=== PATIENT | male | born 1970 | race Caucasian/White ===

== ENCOUNTER 2017-08-10 00:33 | Observation (INO) | payer MEDICAID ==
[~2017-08-10] VITALS: Ht 200.7 cm; Wt 160.0 kg
[2017-08-10] VITALS (8 sets, daily range): BP systolic 121–175; BP diastolic 69–93; PULSE 47–72; RESP 16–20; TEMP 97.3–98; O2SAT 93–98
[~2017-08-10 00:33] MED LIST: FURO20 PO; ULTR50TA PO
[2017-08-10] MEDS ORDERED: ASPI81TA81 PO (01:09)
[2017-08-10] MEDS ORDERED: NITROGLYCERIN 0.4 MG SL 25 TABS/BTL SL ONE ×2 (01:15→03:00)
[2017-08-10] MEDS ORDERED: SODIUM CHLORIDE 0.9% FLUSH 10 ML FLUSH IVF PRN (01:15)
[2017-08-10] MEDS ORDERED: ASPIRIN 81 MG CHEW TAB CHEW ONE (01:15)
--- NOTE | 2017-08-10 01:15 | PD ---
HPI Chief Complaint: Edema Time Seen by Provider: 01:10 Travel History International Travel<30 days: No Contact w/Intl Traveler<30days: No Traveled to known affect area: No History of Present Illness HPI 47-year-old male presents to the emergency department for complaint of bilateral lower extremity swelling over the last several days. Patient has known coronary vessel disease reportedly is supposed to undergo three-vessel coronary bypass. Patient is visiting from [place]. Patient complains of currently 4/10 chest heaviness and tightness as severe as 8/10 in intensity. Patient presently denies any shortness of breath. Patient's noted some fluttering in his chest. Patient denies other concerns or complaints. Patient has history of chronic lower extremity swelling. Patient has been on Lasix in the past. [facility] Past Medical History Narrative Medical CAD hypertension peripheral edema GA tobacco use; no significant Hx Anticoagulant Therapy: Yes (ASA) Cardiovascular Problems: Yes (HTN, GA) Social History Alcohol Use: No Tobacco Use: Yes Substance Use: No Allergies-Medications (Allergen,Severity, Reaction): Coded Allergies: No Known Allergies (Unverified Adverse Reaction, Unknown, 08/10/17) Reported Meds & Prescriptions Reported Meds & Active Scripts Active Reported Aspir-81 (Aspirin) 81 Mg Tabdr 81 Mg PO DAILY Review of Systems Except as stated in HPI: all other systems reviewed are Neg Physical Exam Narrative GENERAL: Well-developed well-nourished male in no acute distress no respiratory distress SKIN: Warm and dry. HEAD: Normocephalic. EYES: No scleral icterus. No injection or drainage. NECK: Supple, trachea midline. No JVD or lymphadenopathy. CARDIOVASCULAR: Regular rate and rhythm without murmurs, gallops, or rubs. RESPIRATORY: Breath sounds equal bilaterally. No accessory muscle use. GASTROINTESTINAL: Abdomen soft, non-tender, nondistended. MUSCULOSKELETAL: No cyanosis, or edema. BACK: Nontender without obvious deformity. No CVA tenderness. Data Data Last Documented VS Vital Signs Date Time Temp Pulse Resp B/P (MAP) Pulse Ox O2 Delivery O2 Flow Rate FiO2 08/10/17 03:05 62 18 169/93 (118) 98 Nasal Cannula 2.00 08/10/17 00:37 98.0 Orders Orders Complete Blood Count With Diff (08/10/17 01:10) Comprehensive Metabolic Panel (08/10/17 01:10) B-Type Natriuretic Peptide (08/10/17 01:10) Act Partial Throm Time (Ptt) (08/10/17 01:10) Prothrombin Time / Inr (Pt) (08/10/17 01:10) Magnesium (Mg) (08/10/17 01:10) Ckmb (Isoenzyme) Profile (08/10/17 01:10) Troponin I (08/10/17 01:10) Urinalysis - C+S If Indicated (08/10/17 01:10) Iv Access Insert/Monitor (08/10/17 01:10) Electrocardiogram (08/10/17 01:10) Ecg Monitoring (08/10/17 01:10) Oximetry (08/10/17 01:10) Oxygen Administration (08/10/17 01:10) Chest, Single Ap (08/10/17 01:10) Sodium Chloride 0.9% Flush (Ns Flush) (08/10/17 01:15) Aspirin Chew (Aspirin Chew) (08/10/17 01:15) Nitroglycerin Sl (Nitrostat Sl) (08/10/17 01:15) Nitroglycerin Sl (Nitrostat Sl) (08/10/17 03:00) Furosemide Inj (Lasix Inj) (08/10/17 03:15) Nitroglycerin 2% Oint (Nitroglycerin 2% (08/10/17 03:15) Admit Order (Ed Use Only) (08/10/17 ) Cap And Stud Machine Operator / Telemetry [id number] (08/10/17 03:16) Diet Heart Healthy (08/10/17 Breakfast) Activity Oob With Assistance (08/10/17 03:16) Notify Dr: Other (08/10/17 03:16) Labs Laboratory Tests Test 08/10/17 01:25 White Blood Count 9.8 TH/MM3 Red Blood Count 5.24 MIL/MM3 Hemoglobin 15.5 GM/DL Hematocrit 45.3 % Mean Corpuscular Volume 86.4 FL Mean Corpuscular Hemoglobin 29.6 PG Mean Corpuscular Hemoglobin Concent 34.2 % Red Cell Distribution Width 13.4 % Platelet Count 304 TH/MM3 Mean Platelet Volume 9.1 FL Neutrophils (%) (Auto) 61.6 % Lymphocytes (%) (Auto) 26.3 % Monocytes (%) (Auto) 9.5 % Eosinophils (%) (Auto) 2.0 % Basophils (%) (Auto) 0.6 % Neutrophils # (Auto) 6.0 TH/MM3 Lymphocytes # (Auto) 2.6 TH/MM3 Monocytes # (Auto) 0.9 TH/MM3 Eosinophils # (Auto) 0.2 TH/MM3 Basophils # (Auto) 0.1 TH/MM3 CBC Comment DIFF FINAL Differential Comment Prothrombin Time 10.7 SEC Prothromb Time International Ratio 1.1 RATIO Activated Partial Thromboplast Time 29.1 SEC Blood Urea Nitrogen 15 MG/DL Creatinine 0.89 MG/DL Random Glucose 96 MG/DL Total Protein 8.3 GM/DL Albumin 3.9 GM/DL Calcium Level 9.1 MG/DL Magnesium Level 1.9 MG/DL Alkaline Phosphatase 126 U/L Aspartate Amino Transf (AST/SGOT) 18 U/L Alanine Aminotransferase (ALT/SGPT) 26 U/L Total Bilirubin 0.5 MG/DL Sodium Level 139 MEQ/L Potassium Level 3.7 MEQ/L Chloride Level 104 MEQ/L Carbon Dioxide Level 25.8 MEQ/L Anion Gap 9 MEQ/L Estimat Glomerular Filtration Rate 91 ML/MIN Total Creatine Kinase 69 U/L Troponin I LESS THAN 0.02 NG/ML B-Type Natriuretic Peptide 27 PG/ML MDM Medical Decision Making Medical Screen Exam Complete: Yes Emergency Medical Condition: Yes Medical Record Reviewed: Yes Interpretation(s) EKG: Atrial flutter 5:1 QS septally no acute ST elevation ventricular rate 72 CBC & BMP Diagram 08/10/17 01:25 Total Protein 8.3 H, Albumin 3.9, Calcium Level 9.1, Magnesium Level 1.9, Alkaline Phosphatase 126 H, Aspartate Amino Transf (AST/SGOT) 18, Alanine Aminotransferase (ALT/SGPT) 26, Total Bilirubin 0.5 Vital Signs Date Time Temp Pulse Resp B/P (MAP) Pulse Ox O2 Delivery O2 Flow Rate FiO2 08/10/17 03:05 62 18 169/93 (118) 98 Nasal Cannula 2.00 08/10/17 01:36 94 08/10/17 01:34 72 18 159/88 (111) 94 Room Air 08/10/17 00:37 98.0 72 20 175/84 (114) 97 Room Air Differential Diagnosis Chest pain, ACS, GA, new-onset atrial flutter, CHF, PE, pleural effusion, viral syndrome Narrative Course Patient placed on track maintainer IV access obtained specimens collected and sent for resulting; patient administered aspirin 162 mg one similar nitroglycerin for complaint of chest heaviness 4/10 intensity. Patient given additional sublingual nitroglycerin 0.4 mg times one Patient pain-free chest x-ray concerning for some vascular congestion Lasix 40 mg IV administered Lab values otherwise grossly within normal limits troponin I is not elevated at less than 0.02, CK is not elevated 69 and BNP is not elevated at 27 Patient reports clinically improved aware of plan for admission Patient with known history of coronary vessel disease reportedly states he is to have three-vessel CABG will admit for serial enzymes and will monitor her response to gentle diuresis patient has chronic history of peripheral edema. Chest x-ray consistent with some vascular congestion and further assessment of new onset versus age-indeterminate atrial flutter. Patient's case discussed with on-call [facility] Physician Communication Physician Communication discussed with Dr Qiu Diagnosis Primary Impression: Chest pain Qualified Codes: R07.2 - Precordial pain Additional Impression: New onset atrial flutter Admitting Information Admitting Physician Requests: Observation Lucero Dukes MD Aug 10, 2017 01:15
--- NOTE | 2017-08-10 01:40 | RADRPT ---
EXAM DATE/TIME: 08/10/2017 01:16 [place] COMPARISON: No previous studies available for comparison. INDICATIONS : Short of breath. MEDICAL HISTORY : Congestive heart failure. Cardiovascular disease. SURGICAL HISTORY : None. ENCOUNTER: Initial ACUITY: 4 - 6 days PAIN SCORE: 0/10 LOCATION: Bilateral chest FINDINGS: Single AP view of the chest. Mild cardiac silhouette enlargement. Mild symmetric bilateral lower lung zone opacity indicating atelectasis versus mild pulmonary edema. No evidence of pleural effusion or pneumothorax. CONCLUSION: Bilateral lower lung zone opacity indicating atelectasis versus mild pulmonary edema. Cornelio Dubose MD on August 10, 2017 at 1:34 Board Certified Radiologist. This report was verified electronically.
[2017-08-10 01:58] LABS: BASOPHIL # 0.1 TH/MM3 (0-0.2); BASOPHIL % 0.6 % (0.0-2.0); EOSINOPHIL # 0.2 TH/MM3 (0-0.4); HEMATOCRIT 45.3 % (39.0-51.0); HEMOGLOBIN 15.5 GM/DL (13.0-17.0); LYMPH % 26.3 % (9.0-44.0); LYMPHOCYTE # 2.6 TH/MM3 (1.0-4.8); MEAN CELL VOLUME 86.4 FL (80.0-100.0); MEAN CORPUSCULAR HEMOGLOBIN 29.6 PG (27.0-34.0); MEAN CORPUSCULAR HGB CONC 34.2 % (32.0-36.0); MEAN PLATELET VOLUME 9.1 FL (7.0-11.0); MONO % 9.5 % (0.0-8.0); MONOCYTE # 0.9 TH/MM3 (0-0.9); NEUT % 61.6 % (16.0-70.0); PLATELET COUNT 304 TH/MM3 (150-450); RED BLOOD COUNT 5.24 MIL/MM3 (4.50-5.90); RED CELL DISTRIBUTION WIDTH 13.4 % (11.6-17.2); WHITE BLOOD COUNT 9.8 TH/MM3 (4.0-11.0)
[2017-08-10 02:11] LABS: INTERNATIONAL NORMALIZED RATIO 1.1 RATIO; PROTHROMBIN TIME - PATIENT 10.7 SEC (9.8-11.6)
[2017-08-10 02:18] LABS: ALBUMIN 3.9 GM/DL (3.4-5.0); ALKALINE PHOSPHATASE 126 U/L (45-117); ALT (GPT) 26 U/L (12-78); AST (GOT) 18 U/L (15-37); BICARBONATE 25.8 MEQ/L (21.0-32.0); BLOOD UREA NITROGEN 15 MG/DL (7-18); CALCIUM 9.1 MG/DL (8.5-10.1); CHLORIDE 104 MEQ/L (98-107); CREATININE 0.89 MG/DL (0.60-1.30); GLOMERULAR FILTRATION RATE 91 ML/MIN (>89); GLUCOSE,RANDOM 96 MG/DL (74-106); MAGNESIUM 1.9 MG/DL (1.5-2.5); SODIUM (NA) 139 MEQ/L (136-145); TOTAL BILIRUBIN ADULT 0.5 MG/DL (0.2-1.0); TOTAL PROTEIN 8.3 GM/DL (6.4-8.2); TROPONIN I LESS THAN 0.02 NG/ML (0.02-0.05)
[2017-08-10] MEDS ORDERED: FUROSEMIDE 40 MG/4 ML VIAL IV PUSH ONE (03:15)
[2017-08-10] MEDS ORDERED: NITROGLYCERIN 2% OINT 1 GM PACKET TOPICAL ONE (03:15)
[2017-08-10] MEDS ORDERED: LACTULOSE SYRUP 20 GM/30 ML CUP PO PRN (03:30)
[2017-08-10] MEDS ORDERED: SENNOSIDES 8.6 MG TAB PO PRN (03:30)
[2017-08-10] MEDS ORDERED: BISACODYL 10 MG SUPP RECTAL PRN (03:30)
[2017-08-10] MEDS ORDERED: ONDANSETRON HCL 4 MG/2 ML VIAL IVP PRN (03:30)
[2017-08-10] MEDS ORDERED: SODIUM CHLORIDE 0.9% FLUSH 10 ML FLUSH IV FLUSH PRN (03:30)
[2017-08-10] MEDS ORDERED: MAGNESIUM HYDROXIDE SUSP 30 ML CUP PO PRN (03:30)
[2017-08-10] MEDS ORDERED: ACETAMINOPHEN/HYDROcodone 325 MG/5 MG TAB PO PRN (03:30)
[2017-08-10] MEDS ORDERED: ACETAMINOPHEN 325 MG TAB PO PRN (03:30)
[2017-08-10] MEDS ORDERED: MORPHINE SULFATE 2 MG/ML INJ IV PUSH PRN (03:30)
--- NOTE | 2017-08-10 04:05 | HHI.HP ---
[facility] No Primary Care Physician Admission Diagnosis chest pain; atrial flutter; h/o lymphedema Diagnoses: (1) Chest pain Diagnosis: Principal (2) CHF (congestive heart failure) Diagnosis: Principal (3) New onset atrial flutter Diagnosis: Principal (4) HTN (hypertension) Diagnosis: Principal (5) Tobacco abuse Diagnosis: Principal Travel History International Travel<30 Days: No Contact w/Intl Traveler <30 Da: No Traveled to Known Affected Are: No History of Present Illness This is a 47-year-old male with a PMH of HTN, CAD, CHF (Unknown EF) and Tobacco Abuse who presented to the ER with complaints of bilateral lower extremity edema and chest pain x2-3 days. Reports chest pain is pressure-like, intermittent, worse w/ exertion, 8/10, non-radiating. States lower extremity edema has gotten worse, previously on Lasix in the past but does not take it regularly. Reports he's visiting from [place] and is supposed to undergo CABG, but has not decided on surgery as of yet. On arrival, BP 135/84, HR 72, O2 sat 97% on RA, Afebrile. CBC unremarkable. Chemistry unremarkable. Troponin negative. BNP 27. INR 1.1. CXR with bilateral lower lung zone opacities atelectasis versus pulmonary edema. S/p Lasix 40mg IV and NTG in ER w / some improvement, currently chest pain free. While in ER, pt noted to have episode of A-flutter, rate controlled. Review of Systems Except as stated in HPI: all other systems reviewed are Neg ROS: 14 point review of systems otherwise negative. Past Family Social History Past Medical History PMH: HTN, CAD, CHF (Unknown EF) and Tobacco Abuse Past Surgical History PAST SURGICAL HISTORY: Left Knee Surgery, Left Ankle Surgery Allergies: Coded Allergies: No Known Allergies (Unverified Allergy, Unknown, 08/10/17) Family History PAST FAMILY HISTORY: Reviewed. No h/o DM or CAD Social History PAST SOCIAL HISTORY: Negative for alcohol or drugs. Positive for Tobacco. Physical Exam Vital Signs Vital Signs Date Time Temp Pulse Resp B/P (MAP) Pulse Ox O2 Delivery O2 Flow Rate FiO2 08/10/17 03:05 62 18 169/93 (118) 98 Nasal Cannula 2.00 08/10/17 01:36 94 08/10/17 01:34 72 18 159/88 (111) 94 Room Air 08/10/17 00:37 98.0 72 20 175/84 (114) 97 Room Air Physical Exam PE: GENERAL: Middle-aged white male in no acute distress. HEENT: PERRLA, EOMI. No scleral icterus or conjunctival pallor. No lid lag or facial droop. CARDIOVASCULAR: Regular rate and rhythm. No obvious murmurs to auscultation. No chest tenderness to palpation. RESPIRATORY: No obvious rhonchi or wheezing. Clear to auscultation. Breath sounds equal bilaterally. GASTROINTESTINAL: Abdomen soft, non-tender, nondistended. BS normal. MUSCULOSKELETAL: Extremities without clubbing, cyanosis, 1+ edema. No obvious deformities. NEUROLOGICAL: Awake, alert and oriented x4. No focal neurologic deficits. Moving both upper and lower extremities spontaneously. Laboratory Laboratory Tests Test 08/10/17 01:25 White Blood Count 9.8 Red Blood Count 5.24 Hemoglobin 15.5 Hematocrit 45.3 Mean Corpuscular Volume 86.4 Mean Corpuscular Hemoglobin 29.6 Mean Corpuscular Hemoglobin Concent 34.2 Red Cell Distribution Width 13.4 Platelet Count 304 Mean Platelet Volume 9.1 Neutrophils (%) (Auto) 61.6 Lymphocytes (%) (Auto) 26.3 Monocytes (%) (Auto) 9.5 Eosinophils (%) (Auto) 2.0 Basophils (%) (Auto) 0.6 Neutrophils # (Auto) 6.0 Lymphocytes # (Auto) 2.6 Monocytes # (Auto) 0.9 Eosinophils # (Auto) 0.2 Basophils # (Auto) 0.1 CBC Comment DIFF FINAL Differential Comment Prothrombin Time 10.7 Prothromb Time International Ratio 1.1 Activated Partial Thromboplast Time 29.1 Blood Urea Nitrogen 15 Creatinine 0.89 Random Glucose 96 Total Protein 8.3 Albumin 3.9 Calcium Level 9.1 Magnesium Level 1.9 Alkaline Phosphatase 126 Aspartate Amino Transf (AST/SGOT) 18 Alanine Aminotransferase (ALT/SGPT) 26 Total Bilirubin 0.5 Sodium Level 139 Potassium Level 3.7 Chloride Level 104 Carbon Dioxide Level 25.8 Anion Gap 9 Estimat Glomerular Filtration Rate 91 Total Creatine Kinase 69 Troponin I LESS THAN 0.02 B-Type Natriuretic Peptide 27 Result Diagram: 08/10/1712408/10/17124 Caprini VTE Risk Assessment Caprini VTE Risk Assessment: No/Low Risk (score <= 1) Caprini Risk Assessment Model Point Value = 1 Point Value = 2 Point Value = 3 Point Value = 5 Age 41-60 Minor surgery BMI > 25 kg/m2 Swollen legs Varicose veins or History of unexplained or recurrent spontaneous Oral contraceptives or hormone replacement Sepsis (< 1 month) Serious lung disease, including pneumonia (< 1 month) Abnormal pulmonary function Acute myocardial infarction Congestive heart failure (< 1 month) History of inflammatory bowel disease Medical patient at bed rest Age 61-74 Arthroscopic surgery Major open surgery (> 45 min) Laparoscopic surgery (> 45 min) Malignancy Confined to bed (> 72 hours) Immobilizing plaster cast Central venous access Age >= 75 History of VTE Family history of VTE Factor V Leiden Prothrombin [id number] Lupus anticoagulant Anticardiolipin antibodies Elevated serum homocysteine Heparin-induced thrombocytopenia Other congenital or acquired thrombophilia Stroke (< 1 month) Elective arthroplasty Hip, pelvis, or leg fracture Acute spinal cord injury (< 1 month) Prophylaxis Regimen Total Risk Factor Score Risk Level Prophylaxis Regimen 0-1 Low Early ambulation 2 Moderate Order ONE of the following: *Sequential Compression Device (SCD) *Heparin 5000 units SQ BID 3-4 Higher Order ONE of the following medications: *Heparin 5000 units SQ TID *Enoxaparin/Lovenox 40 mg SQ daily (WT < 150 kg, CrCl > 30 mL/min) *Enoxaparin/Lovenox 30 mg SQ daily (WT < 150 kg, CrCl > 10-29 mL/min) *Enoxaparin/Lovenox 30 mg SQ BID (WT < 150 kg, CrCl > 30 mL/min) AND/OR *Sequential Compression Device (SCD) 5 or more Highest Order ONE of the following medications: *Heparin 5000 units SQ TID (Preferred with Epidurals) *Enoxaparin/Lovenox 40 mg SQ daily (WT < 150 kg, CrCl > 30 mL/min) *Enoxaparin/Lovenox 30 mg SQ daily (WT < 150 kg, CrCl > 10-29 mL/min) *Enoxaparin/Lovenox 30 mg SQ BID (WT < 150 kg, CrCl > 30 mL/min) AND *Sequential Compression Device (SCD) Assessment and Plan Problem List: (1) Chest pain ICD Code: R07.9 - Chest pain, unspecified Status: Acute (2) New onset atrial flutter ICD Code: I48.92 - Unspecified atrial flutter Status: Acute (3) CHF (congestive heart failure) ICD Code: I50.9 - Heart failure, unspecified (4) HTN (hypertension) ICD Code: I10 - Essential (primary) hypertension (5) Tobacco abuse ICD Code: Z72.0 - Tobacco use Assessment and Plan A/P: 1. Chest Pain: r/o ACS, h/o extensive cardiac disease, recommendation for CABG per patient. Initial trop negative. Admit for Observation, Telemetry, check serial cardiac enzymes. Statin, ASA, Metoprolol. Consult Cardiology as needed for further recommendations/evaluation. NTG/Morphine as needed. 2. CHF: Unknown EF. Worsening lower extremity edema. BNP normal. CXR w/ possible edema bilaterally, s/p Lasix IV in ER. Continue w/ diuresis, monitor I /O, check Echo to eval for cardiomyopathy/heart failure. 3. A-flutter: New Onset. Rate-controlled. Telemetry. Check Echo as above. Metoprolol. Consult Cardiology for further recommendations. 4. HTN: Uncontrolled. BP 170's. Start Metoprolol, monitor BP. 5. Tobacco Abuse: Pt counselled. Ativan prn. No NicoDerm to avoid vasoconstriction. 6. DVT Prophylaxis: Heparin sq 7. Social work for d/c planning as needed. 8. Case discussed at length w/ ER physician, labs/imaging/records reviewed by me. Problem Qualifiers (1) Chest pain: Qualified Codes: R07.2 - Precordial pain Nadeen Qiu MD Aug 10, 2017 04:05
--- NOTE | 2017-08-10 08:08 | HHI.PR ---
Subjective Remarks Follow up on patient with CAD, chest pain. Patient seen and examined. Patient states he feels tired. Denies any improvement since admission. He denies any complaints of chest pain. Denies any cough or shortness of breath. 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 He has come down to [facility] to "camp out for awhile". Patient is a poor historian. Gives short one or two word answers. Keeps his eyes closed thru most of the exam. Denies any N/V or abdominal pain. Urinating well. Objective Vitals Vital Signs Date Time Temp Pulse Resp B/P (MAP) Pulse Ox O2 Delivery O2 Flow Rate FiO2 08/10/17 05:05 97.5 52 16 128/72 (90) 98 08/10/17 04:10 70 18 129/75 (93) 96 Nasal Cannula 2.00 08/10/17 03:05 62 18 169/93 (118) 98 Nasal Cannula 2.00 08/10/17 01:36 94 08/10/17 01:34 72 18 159/88 (111) 94 Room Air 08/10/17 00:37 98.0 72 20 175/84 (114) 97 Room Air I/O 08/09/17 08/09/17 08/09/17 08/10/17 08/10/17 08/10/17 07:00 15:00 23:00 07:00 15:00 23:00 Intake Total 100 ml 100 ml Balance 100 ml 100 ml Intake Oral 100 ml 100 ml Result Diagram: 08/10/17 0125 08/10/17 0125 Imaging Last Impressions Chest X-Ray 08/10/17 0110 Signed Impressions: Service Date/Time: Thursday, August 10, 2017 01:16 - CONCLUSION: Bilateral lower lung zone opacity indicating atelectasis versus mild pulmonary edema. Cornelio Dubose MD Objective Remarks GENERAL: Well-nourished, well-developed obese male patient in NAD. Lethargic. SKIN: Warm and dry. No rash. HEAD: Normocephalic. Atraumatic. EYES: EOMI. No scleral icterus. No injection or drainage. ENT: No nasal bleeding or discharge. Mucous membranes pink and moist. NECK: Supple. Trachea midline. CARDIOVASCULAR: Regular rate and rhythm. S1, S2 noted. No murmur appreciated. RESPIRATORY: No accessory muscle use. Clear to auscultation except for few crackles in right lung base. GASTROINTESTINAL: Abdomen soft, non-tender, nondistended. Normoactive bowel sounds x4. MUSCULOSKELETAL: No obvious deformities. Extremities without clubbing or cyanosis. Trace edema bilaterally. NEUROLOGICAL: Awake. Lethargic. Able to move all extremities spontaneously. Normal speech but giving minimal responses. PSYCHIATRIC: Difficult to ascertain mood and insight at this time. Medications and IVs Current Medications Medications (Trade) Dose Ordered Sig/Rhonda Route Start Time Stop Time Status Last Admin (NS Flush) 2 ml UNSCH PRN IV FLUSH 08/10/17 03:30 (NS Flush) 2 ml BID IV FLUSH 08/10/17 09:00 (Zofran Inj) 4 mg Q6H PRN IVP 08/10/17 03:30 (Heparin Inj) 5,000 units Q12H SQ 08/10/17 09:00 (Tylenol) 650 mg Q6H PRN PO 08/10/17 03:30 ([place] 5-325 Mg) 1 tab Q4H PRN PO 08/10/17 03:30 (Morphine Inj) 2 mg Q3H PRN IV PUSH 08/10/17 03:30 (Babita-Colace) 1 tab BID PO 08/10/17 09:00 (Milk Of Magnesia Liq) 30 ml Q12H PRN PO 08/10/17 03:30 (Senokot) 17.2 mg Q12H PRN PO 08/10/17 03:30 (Dulcolax Supp) 10 mg DAILY PRN RECTAL 08/10/17 03:30 (Lactulose Liq) 30 ml DAILY PRN PO 08/10/17 03:30 (Pravachol) 40 mg DAILY PO 08/10/17 09:00 (Lasix Inj) 40 mg BID@18 IV PUSH 08/10/17 09:00 (Lopressor) 25 mg Q12HR PO 08/10/17 09:00 (Ecotrin Ec) 81 mg DAILY PO 08/10/17 09:00 (Pneumovax-23 Inj) 25 mcg ONCE ONCE IM 08/11/17 09:00 08/11/17 09:01 (Flu (Quadrivalent) Vaccine Inj) 0.5 ml ONCE ONCE IM 08/11/17 09:00 08/11/17 09:01 A/P Problem List: (1) Chest pain ICD Code: R07.9 - Chest pain, unspecified Status: Acute (2) New onset atrial flutter ICD Code: I48.92 - Unspecified atrial flutter Status: Acute (3) CHF (congestive heart failure) ICD Code: I50.9 - Heart failure, unspecified (4) HTN (hypertension) ICD Code: I10 - Essential (primary) hypertension (5) Tobacco abuse ICD Code: Z72.0 - Tobacco use Assessment and Plan 1. Chest Pain, r/o ACS h/o extensive cardiac disease, recommendation for CABG per patient. Patient denies any chest pain this morning - Initial trop negative. Trend cardiac enzymes and EKGs. - Continuous cardiac monitoring - Statin, ASA, Metoprolol. - Cardiology consulted, appreciate recommendations - NTG/Morphine as needed 2. CHF, Unknown EF. Patient reports worsening lower extremity edema - BNP normal, suspect falsely low secondary to patient's morbid obesity - CXR w/ possible edema bilaterally - Continue w/ IV diuresis. Strict I/O. Monitor electrolytes. 2gm salt restricted diet - Check Echo to eval for cardiomyopathy/heart failure. - Monitor respiratory status, patient currently satting 98% on room air 3. A-flutter, New Onset. Rate-controlled - cardiac telemetry. Check Echo as above. Metoprolol. Consult Cardiology for further recommendations. 4. HTN, Uncontrolled. BP 170's at presentation in the ED. - Started on Metoprolol 25 mg twice a day. BP much improved. Continue. - Continue to monitor BP and adjust treatment accordingly 5. Tobacco Abuse - Cessation counseling - No NicoDerm to avoid vasoconstriction. 6. Suspect underlying AMPARO - Recommend patient follow up as outpatient for sleep study 7. DVT Prophylaxis: Heparin sq Discharge Planning Discharge planning pending clinical course improvement and cardiology clearance Attending Statement patient was seen and examined today. presented with chest pain and worsening pedal edema. troponin so far negative. echo pending. awaiting cardiology evaluation. rest of assessment and plan as noted above. Problem Qualifiers (1) Chest pain: Qualified Codes: R07.2 - Precordial pain Andreia Bolivar Aug 10, 2017 08:08 Danie Harris MD Aug 10, 2017 12:19
[2017-08-10] MEDS ORDERED: PRAVASTATIN SOD 40 MG TAB PO SCH (09:00)
[2017-08-10] MEDS ORDERED: HEPARIN SODIUM - SQ 10,000 UNITS/ML VIAL SQ SCH (09:00)
[2017-08-10] MEDS ORDERED: DOCUSATE SODIUM 50 MG/SENNA 8.6 MG TAB PO SCH (09:00)
[2017-08-10] MEDS ORDERED: METOPROLOL TARTRATE 25 MG TAB PO SCH (09:00)
[2017-08-10] MEDS ORDERED: SODIUM CHLORIDE 0.9% FLUSH 10 ML FLUSH IV FLUSH SCH (09:00)
[2017-08-10] MEDS ORDERED: ASPIRIN EC 81 MG TABEC PO SCH (09:00)
[2017-08-10] MEDS: FUROSEMIDE 40 MG/4 ML VIAL IV PUSH SCH ×2 (11:20→18:37)
--- NOTE | 2017-08-10 12:45 | EKG ---
Date Performed: 08/10/2017 Time Performed: 01:06:05 PTAGE: 47 years EKG: Atrial flutter with controlled ventricular response Low QRS voltage in precordial leads PREVIOUS TRACING : 08/20/2013 17.58 Since previous tracing, there is a rhythm change from Sinus rhythm to atrial flutter. Clinical correlation is recommended. DOCTOR: Sixto Baumann Interpretating Date/Time 08/10/2017 12:43:29
--- NOTE | 2017-08-10 12:52 | MB ---
cc: GUILLE OLIVER M.D. DATE OF CONSULTATION: 08/10/2017 REASON FOR CONSULTATION: HISTORY OF PRESENT ILLNESS: Kurt is a very pleasant 47-year-old gentleman visiting from [place]. Over a year ago he had a heart catheterization and was told he needed coronary artery bypass graft procedure. The patient has not done that yet. He presents with a chief complaint of worsening mild to moderate dyspnea on exertion and chest discomfort, lower extremity edema, weakness and fatigue. Otherwise he denies any fevers, chills, cough, GI/ bleeding, orthopnea, syncope or dizziness. He also complains of palpitations. PAST MEDICAL HISTORY: As per history of present illness. History of hypertension. Myocardial infarction. SOCIAL HISTORY He does smoke. Denies alcohol use. ALLERGIES: NONE. MEDICATIONS PRIOR TO ADMISSION: Aspirin 81 milligrams daily. MEDICATIONS IN THE HOSPITAL: 1. Heparin 5000 subcu q12 hours. 2. Pravastatin 40 daily. 3. Furosemide 40 IV b.i.d. 4. Toprol 25 q12 hours p.o. 5. Aspirin 81 milligrams daily. PHYSICAL EXAMINATION VITAL SIGNS: Blood pressure 121/69, pulse ranging between 60 and 70, temperature 97.3, respiratory rate 18, sats are 93% on room air. General: He is alert and oriented x3 in no acute distress. NECK: Supple. No JVD. CARDIOVASCULAR: S1-S2. No murmurs, rubs, or gallops. LUNGS: Clear. ABDOMEN: Soft, nontender, positive bowel sounds. EXTREMITIES: No extremity edema. Chest x-ray shows bilateral lower lung zone opacity indicating atelectasis versus mild pulmonary edema. LABORATORY DATA White count 9.81, hemoglobin 15.5, hematocrit 45.3, platelet count 304. Sodium 139, potassium 3.7, chloride 104, bicarb 25.8, BUN 15, creatinine 0.89. AST 18, ALT 26. INR is 1.1. EKG shows A-flutter at a rate of 72 beats per minute. DIAGNOSIS 1. A-flutter. 2. CHF. 3. Coronary artery disease. 4. Unstable angina. 5. Decompensated congestive heart failure. 6. Tobacco abuse. DISCUSSION: At this point in time, the patient had high risk presentation with unstable angina. [place] Cardiovascular Society Class IV angina with resting chest pain, worsening dyspnea on exertion, CHF. Therefore, I have recommended left heart catheterization and right heart catheterization which is medically necessary. The patient currently is refusing. I explained to him he is high-risk for sudden and significant morbidity/mortality. He understands. Strongly recommend smoking cessation. I will put him on the schedule for tomorrow. He has a BLANCA vas score of 2, therefore, Coumadin and/or novel oral anticoagulant therapy with Xarelto, Pradaxa, Eliquis is indicated and I do recommend that to him. Will hold this over the next 24 hours while the patient is deciding whether or not he will have a heart catheterization. Otherwise, continue aspirin, subcu heparin, beta-homar, diuretic. Follow up daily BNP, BMP. MD PRETTY Reynoso/JEANNETTE /11:43 AM /12:14 PM
[2017-08-10 16:35] LABS: CHOLESTEROL 168 MG/DL (120-200); TRIGLYCERIDES 90 MG/DL (42-150)
[2017-08-10 16:43] LABS: CHOLESTEROL/ HDL RATIO 5.23 RATIO; HDL CHOLESTEROL 32.1 MG/DL (40.0-60.0); LDL CHOLESTEROL 118 MG/DL (0-99); TROPONIN I LESS THAN 0.02 NG/ML (0.02-0.05)
[2017-08-11] MEDS ORDERED: INFLUENZA VIRUS VACCINE (QUADRIVALENT) 0.5 ML SYR IM ONE (09:00)
[2017-08-11] MEDS ORDERED: PNEUMOCOCCAL POLYVALENT INJ 25 MCG/0.5 ML SYR IM ONE (09:00)
== END 2017-08-10 21:53 | disposition left against medical advice (07) ==
LOC: NEPC 00:33 → NEDA 03:19 → NEPFCDU 04:15
PROVIDERS: ADMIT Internal Medicine; ATTEND Internal Medicine
DX: I25.110 Atherosclerotic heart disease of native coronary artery with unstable angina pectoris (principal); I11.0 Hypertensive heart disease with heart failure; I50.9 Heart failure, unspecified; I48.92 Unspecified atrial flutter; I25.2 Old myocardial infarction; F17.200 Nicotine dependence, unspecified, uncomplicated; E66.01 Morbid (severe) obesity due to excess calories; Z68.39 Body mass index [BMI] 39.0-39.9, adult; Z79.82 Long term (current) use of aspirin
CPT/HCPCS: 71045; 80053; 80061; 82550; 83735; 83880; 84443; 84484; 85025; 85610; 85730; 93005; 96372; 96374; 96376; 99285; G0378; J1644; J1940

== ENCOUNTER 2017-09-20 20:26 | Emergency (ER) | payer MEDICAID ==
[~2017-09-20] VITALS: Ht 200.7 cm; Wt 165.0 kg
[~2017-09-20 20:26] MED LIST changes: +ASPI81TA81 PO; -FURO20 PO; -ULTR50TA PO
[2017-09-20 20:29] VITALS: BP 140/76; PULSE 84; RESP 22; TEMP 98.5; O2SAT 100
[2017-09-20] MEDS ORDERED: FURO1TAB60 PO (20:33)
[2017-09-20 20:45] VITALS: O2SAT 98
[2017-09-20] MEDS ORDERED: SODIUM CHLORIDE 0.9% FLUSH 10 ML FLUSH IVF PRN (20:45)
--- NOTE | 2017-09-20 20:49 | PD ---
HPI . Lower extremity edema Chief Complaint: Edema Time Seen by Provider: 20:36 Travel History International Travel<30 days: No Contact w/Intl Traveler<30days: No Traveled to known affect area: No History of Present Illness HPI This patient presents with the chief complaint of lower extremity edema. He states that it started this week. It is getting progressively worse. Left is worse than right. He reports pain in the left lower extremity which she rates 9 -3/4 out of 10. He states it feels like it's about to burst. He is not having any chest pain or shortness of breath. He reports a history of coronary artery disease and hypertension. The patient reports that he was recently admitted to [facility] for the same thing. [facility] Past Medical History Hx Anticoagulant Therapy: Yes (ASA) Asthma: No Blood Disorders: No Anxiety: No Depression: No Heart Rhythm Problems: Yes Cancer: No Cardiovascular Problems: No High Cholesterol: No Chemotherapy: No Chest Pain: Yes Congestive Heart Failure: No COPD: No Coronary Artery Disease: Yes Diabetes: No Diminished Hearing: No Endocrine: No Gastrointestinal Disorders: No Genitourinary: No Hypertension: No Immune Disorder: No Implanted Vascular Access Dvce: No Musculoskeletal: No Neurologic: No Psychiatric: No Reproductive: No Respiratory: No Radiation Therapy: No Sleep Apnea: No Thyroid Disease: No Past Surgical History Other Surgery: Yes (b/l thorocetisis) Social History Alcohol Use: Yes (jaimie) Tobacco Use: Yes Substance Use: No Allergies-Medications (Allergen,Severity, Reaction): Coded Allergies: No Known Allergies (Unverified Allergy, Unknown, 09/20/17) Reported Meds & Prescriptions Reported Meds & Active Scripts Active Reported Lasix (Furosemide) 40 Mg Tab 40 Mg PO BID Aspir-81 (Aspirin) 81 Mg Tabdr 81 Mg PO DAILY Review of Systems Except as stated in HPI: all other systems reviewed are Neg Cardiovascular: No: Chest Pain or Discomfort Respiratory: No: Shortness of Breath Musculoskeletal: Positive: Edema, Pain Physical Exam Narrative GENERAL: Markedly obese. He weighs 165 kg and has a BMI of 41. He does not appear to be in any distress. SKIN: warm/dry. He has bruising in the lower abdomen bilaterally compatible with Lovenox injections. HEAD: Normocephalic. Atraumatic. EYES: Pupils equal and round. No scleral icterus. No injection or drainage. ENT: No nasal bleeding or discharge. Mucous membranes pink and moist. NECK: Trachea midline. Full range of motion without pain.. CARDIOVASCULAR: Regular rate and rhythm. Heart sounds are normal. RESPIRATORY: No accessory muscle use. Bibasilar rhonchi. Breath sounds equal bilaterally. GASTROINTESTINAL: Abdomen soft. Nontender. Bowel sounds present. Nondistended. MUSCULOSKELETAL: No obvious deformities. Both legs looked swollen. There is no pitting of the right leg. There is 1+ pitting of the left leg. It is also darker in color than the right leg. NEUROLOGICAL: Awake and alert. No obvious cranial nerve deficits. Motor grossly within normal limits. Normal speech. PSYCHIATRIC: Appropriate mood and affect; insight and judgment normal. Data Data Last Documented VS Vital Signs Date Time Temp Pulse Resp B/P (MAP) Pulse Ox O2 Delivery O2 Flow Rate FiO2 09/20/17 20:45 98 Room Air 09/20/17 20:29 98.5 84 22 140/76 (97) Orders Orders Complete Blood Count With Diff (09/20/17 20:42) Basic Metabolic Panel (Bmp) (09/20/17 20:42) B-Type Natriuretic Peptide (09/20/17 20:42) Troponin I (09/20/17 20:42) Iv Access Insert/Monitor (09/20/17 20:42) Electrocardiogram (09/20/17 20:42) Ecg Monitoring (09/20/17 20:42) Oximetry (09/20/17 20:42) Chest, Single Ap (09/20/17 20:42) Us Leg Venous Doppler (09/20/17 20:42) Sodium Chloride 0.9% Flush (Ns Flush) (09/20/17 20:45) Labs Laboratory Tests Test 09/20/17 21:00 White Blood Count 7.9 TH/MM3 Red Blood Count 4.95 MIL/MM3 Hemoglobin 14.8 GM/DL Hematocrit 42.8 % Mean Corpuscular Volume 86.5 FL Mean Corpuscular Hemoglobin 30.0 PG Mean Corpuscular Hemoglobin Concent 34.7 % Red Cell Distribution Width 13.9 % Platelet Count 246 TH/MM3 Mean Platelet Volume 9.2 FL Neutrophils (%) (Auto) 53.5 % Lymphocytes (%) (Auto) 33.6 % Monocytes (%) (Auto) 9.3 % Eosinophils (%) (Auto) 2.8 % Basophils (%) (Auto) 0.8 % Neutrophils # (Auto) 4.2 TH/MM3 Lymphocytes # (Auto) 2.7 TH/MM3 Monocytes # (Auto) 0.7 TH/MM3 Eosinophils # (Auto) 0.2 TH/MM3 Basophils # (Auto) 0.1 TH/MM3 CBC Comment DIFF FINAL Differential Comment Blood Urea Nitrogen 12 MG/DL Creatinine 1.15 MG/DL Random Glucose 118 MG/DL Calcium Level 9.2 MG/DL Sodium Level 141 MEQ/L Potassium Level 3.5 MEQ/L Chloride Level 105 MEQ/L Carbon Dioxide Level 30.2 MEQ/L Anion Gap 6 MEQ/L Estimat Glomerular Filtration Rate 68 ML/MIN Troponin I LESS THAN 0.02 NG/ML B-Type Natriuretic Peptide 4 PG/ML MDM Medical Decision Making Medical Screen Exam Complete: Yes Emergency Medical Condition: Yes Medical Record Reviewed: Yes (patient was seen and admitted here on August 10 with similar complaints. He left the next day AMA.) Interpretation(s) EKG shows a flutter with a ventricular rate of 82. This EKG looks very similar to his EKG done in August. Differential Diagnosis Differential diagnosis of leg pain includes but is not limited to lumbar radiculopathy, arthritis, myalgias, DVT, ruptured Duque's cyst. Narrative Course This patient presents with chief complaint of bilateral lower extremity swelling and pain. Left leg is worse than the right leg. The patient noted to have bruising to his abdominal wall consistent with Lovenox injections. He then admitted that he was just in the hospital at [facility] for the same thing. I have requested those records. CBC & BMP Diagram 09/20/17 21:00 Calcium Level 9.2 trop < 0.02 BNP 4 CXR>>Stable chest x-ray with underinflation and bibasilar airspace opacity. This could represent atelectasis or possibly edema. US>>No DVT is identified within the left lower extremity We have not been successful in obtaining his records from [facility]. However, I have found no acute findings on his evaluation here tonight. He is stable for discharge to home. Diagnosis Primary Impression: Lower extremity edema Patient Instructions: Edema (DC), General Instructions, Leg Edema (ED) Additional Instructions: Continue the Lasix Disposition: DISCHARGE HOME Condition: Stable Juliet Peter MD Sep 20, 2017 20:49
[2017-09-20 21:11] LABS: AUTOMATED NEUTROPHIL # 4.2 TH/MM3 (1.8-7.7); BASOPHIL # 0.1 TH/MM3 (0-0.2); BASOPHIL % 0.8 % (0.0-2.0); EOSINOPHIL # 0.2 TH/MM3 (0-0.4); EOSINOPHIL % 2.8 % (0.0-4.0); HEMATOCRIT 42.8 % (39.0-51.0); HEMOGLOBIN 14.8 GM/DL (13.0-17.0); LYMPH % 33.6 % (9.0-44.0); LYMPHOCYTE # 2.7 TH/MM3 (1.0-4.8); MEAN CELL VOLUME 86.5 FL (80.0-100.0); MEAN CORPUSCULAR HGB CONC 34.7 % (32.0-36.0); MEAN PLATELET VOLUME 9.2 FL (7.0-11.0); MONO % 9.3 % (0.0-8.0); MONOCYTE # 0.7 TH/MM3 (0-0.9); NEUT % 53.5 % (16.0-70.0); PLATELET COUNT 246 TH/MM3 (150-450); RED BLOOD COUNT 4.95 MIL/MM3 (4.50-5.90); RED CELL DISTRIBUTION WIDTH 13.9 % (11.6-17.2); WHITE BLOOD COUNT 7.9 TH/MM3 (4.0-11.0)
[2017-09-20 21:24] LABS: BICARBONATE 30.2 MEQ/L (21.0-32.0); BLOOD UREA NITROGEN 12 MG/DL (7-18); CALCIUM 9.2 MG/DL (8.5-10.1); CHLORIDE 105 MEQ/L (98-107); CREATININE 1.15 MG/DL (0.60-1.30); GLOMERULAR FILTRATION RATE 68 ML/MIN (>89); GLUCOSE,RANDOM 118 MG/DL (74-106); SODIUM (NA) 141 MEQ/L (136-145)
--- NOTE | 2017-09-20 21:26 | RADRPT ---
EXAM DATE/TIME: 09/20/2017 21:07 [facility] COMPARISON: CHEST SINGLE AP, August 10, 2017, 1:16. INDICATIONS : Shortness of breath and left lower leg swelling for 3 days. MEDICAL HISTORY : Congestive heart failure. Cardiovascular disease. SURGICAL HISTORY : None. ENCOUNTER: Initial ACUITY: 3 days PAIN SCORE: 0/10 LOCATION: Bilateral chest FINDINGS: Portable AP view of the chest demonstrates cardiac silhouette size at the upper limits for normal. Lashonda ngs are underinflated with stable bibasilar interstitial versus airspace opacities. No pleural effusi on or pneumothorax is identified. The bones and soft tissues demonstrate no acute finding. CONCLUSION: Stable chest x-ray with underinflation and bibasilar airspace opacity. This could represent atelectas is or possibly edema. Al Velazquez MD on September 20, 2017 at 21:23 Board Certified Radiologist. This report was verified electronically.
[2017-09-20 21:28] LABS: TROPONIN I LESS THAN 0.02 NG/ML (0.02-0.05)
--- NOTE | 2017-09-20 21:56 | RADRPT ---
EXAM DATE/TIME: 09/20/2017 21:18 [facility] COMPARISON: No previous studies available for comparison. INDICATIONS : Left leg swelling. MEDICAL HISTORY : Coronary artery disease. Anticoagulant therapy. Chest pain. Irregular heartbeat. SURGICAL HISTORY : Knee surgery. Bilaterl thoracentesis. ENCOUNTER: Subsequent ACUITY: 1 day PAIN SCORE: 3/10 LOCATION: Left leg. TECHNIQUE: Venous ultrasound of the leg was performed from the inguinal ligament to the proximal calf. Real-harry e, color Doppler and spectral tracing, compression and augmentation techniques were used. FINDINGS: There is normal compressibility of the deep venous system from the inguinal region to the proximal ca lf. No echogenic clot is seen in the lumen of the common femoral, femoral, popliteal, and posterior tibial veins. There is a normal response of the venous system to proximal and distal augmentation an d respiration. There is an enlarged lymph node in the left inguinal region measure 3.5 x 1.6 x 4.9 cm. CONCLUSION: 1. No DVT is identified within the left lower extremity. 2. There is an enlarged left inguinal lymph node. Al Velazquez MD on September 20, 2017 at 21:54 Board Certified Radiologist. This report was verified electronically.
[2017-09-20 22:10] VITALS: BP 140/70; PULSE 66; RESP 18; O2SAT 95
--- NOTE | 2017-09-21 15:25 | EKG ---
Date Performed: 09/20/2017 Time Performed: 20:50:01 PTAGE: 47 years EKG: ATRIAL FLUTTER/TACHYCARDIA POSSIBLE RIGHT VENTRICULAR CONDUCTION DELAY INFERIOR MYOCARDIAL INFARCTION, AGE INDETERMINATE ABNORMAL ECG PREVIOUS TRACING : 08/10/2017 01.06 DOCTOR: Nba Oliveros Interpretating Date/Time 09/21/2017 15:23:47
== END 2017-09-20 22:58 | disposition home or self-care (01) ==
LOC: NEPE 20:26
DX: R60.1 Generalized edema (principal); R59.9 Enlarged lymph nodes, unspecified; I48.92 Unspecified atrial flutter; E66.9 Obesity, unspecified; I25.10 Atherosclerotic heart disease of native coronary artery without angina pectoris; Z72.0 Tobacco use; Z79.82 Long term (current) use of aspirin; Z79.899 Other long term (current) drug therapy
CPT/HCPCS: 71045; 80048; 83880; 84484; 85025; 93005; 93971